=== PATIENT | male | born 1940 | race Caucasian/White ===

== ENCOUNTER 2023-04-15 09:04 | Outpatient (RCR) | payer MEDICARE, OTHER, SELFPAY | END 2023-08-13 23:59 | disposition home or self-care (01) | PROVIDERS: PCP Family Medicine; Visit Provider Family Medicine | DX: G30.9 Alzheimer's disease, unspecified (principal); F02.80 Dementia in other diseases classified elsewhere, unspecified severity, without behavioral disturbance, psychotic disturbance, mood disturbance, and anxiety; Z51.89 Encounter for other specified aftercare | CPT/HCPCS: 97165 ==

== ENCOUNTER 2024-05-17 11:59 | Outpatient (REF) | payer MEDICARE, OTHER, SELFPAY ==
[2024-05-17 14:33] LABS: Vitamin B12* 230 pg/mL (243-894)
== END 2024-05-17 12:00 | disposition home or self-care (01) ==
LOC: NPINS 11:59
PROVIDERS: PCP Family Medicine; Visit Provider Nurse Practitioner Gerontology
DX: E53.8 Deficiency of other specified B group vitamins (principal)
CPT/HCPCS: 82607

== ENCOUNTER 2024-11-16 12:32 | Outpatient (REF) | payer MEDICARE, SELFPAY ==
[2024-11-16 14:47] LABS: Vitamin B12* 214 pg/mL (243-894)
== END 2024-11-16 12:33 | disposition home or self-care (01) ==
LOC: NPINS 12:32
PROVIDERS: PCP Family Medicine; Visit Provider Nurse Practitioner Gerontology
DX: E53.8 Deficiency of other specified B group vitamins (principal)
CPT/HCPCS: 82607

== ENCOUNTER 2025-01-29 22:47 | Outpatient (CLI) | payer MEDICARE, SELFPAY | END 2025-01-29 22:48 | disposition home or self-care (01) | LOC: AMB 01-31 12:59 | PROVIDERS: PCP Family Medicine; Visit Provider Family Medicine | DX: R10.9 Unspecified abdominal pain (principal) | CPT/HCPCS: A0425; A0429 ==

== ENCOUNTER 2025-01-29 23:02 | Emergency (ER) | payer MEDICARE, SELFPAY ==
[2025-01-29 23:04] VITALS: BP 146/77; RESP 18; TEMP 36.2; O2SAT 97; BMI 23.0
--- OUTSIDE RECORDS SUMMARY | 2025-01-29 23:04 | XMS_ITS | Clinical Summary ---
Author Organization [employer] [facility] Address [address] [place] [id number] Care Team Providers Care Paint Mixer Machine Name Role Phone Izabella Selby DO Primary Care Provider [phone] Allergies No known active allergies Medications cyanocobalamin (Vitamin B-12) 1,000 mcg tabletIndication s:Vitamin B12 deficiency Take 1 Tablet (1,000 mcg) by mouth once daily. 90 Tablet 3 03/04/2023 Active galantamine (RAZADYNE) 4 mg tabletIndication s:Dementia in Alzheimer's disease (HC) TAKE 1 TABLET(4 MG) BY MOUTH TWICE DAILY WITH MEALS 180 Tablet 1 06/27/2023 Active Active Problems Problem Noted Date Diagnosed Date Hypertension 10/01/2023 Dementia in Alzheimer's disease 03/24/2023 Memory changes 02/27/2023 Hx of lymphoma 07/01/2012 Immunizations Immunization Administration Dates Next Due COVID-19 vaccine (Russ-J&J) TONE SHAH Pneumococcal Conj 20-valent (Prevnar 20) 024 Tdap 03/10/2021,03/15/2011 Family History Medical History Relation Name Comments Heart Disease Father Obesity Father Emphysema Mother smoker Anesthesia Problem No Family History Blood Disease No Family History Relation Name Status Comments Father Mother Social History Tobacco Use Types Packs/Day Years Used Date Smoking Tobacco: Former Cigarettes 1 15 1 959 - 1973 Smokeless Tobacco: Never Tobacco Cessation:Counseling Given: Not Answered Alcohol Use Standard Drinks/Week Comments Not Currently 0 (1 standard drink = 0.6 oz pur e alcohol) PHQ-2 Answer Date Recorded PHQ-2 TOTAL SCORE 0 10/01/2023 Social Connections Answer Date Recorded Frequency of Communication with Friends and Fami ly 0 03/24/2023 Financial Resource Strain Answer Date R ecorded Difficulty of Paying Living Expenses 3 03/24/2023 Difficulty of Paying Living Expenses Not on file 03/24/2023 Food Insecurity Answer Date Recorded Worried About Running Out of Food in the Last Ye ar 1 03/24/2023 Transportation Needs Answer Date Record ed Lack of Transportation (Medical) 1 03/24/2023 Housing Stability Answer Date Recorded Unable to Pay for Housing in the Last Year 1 03/24/2023 Sex and Gender Information Value Date Recorded Sex Assigned at Not on file 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 Gender Identity Not on file Sexual Orientation Not on file Obstetrics History Last Filed Vital Signs Vital Sign Reading Time Taken Comments Blood Pressure 148/85 10/01/2023 4:39 PM CDT Pulse 48 10/01/2023 4:39 PM CDT Temperature 36.7 C (98 F) 02/16/2019 10:55 AM CDT Respiratory Rate 18 04/05/2019 2:11 PM CDT Oxygen Saturation 99% 06/24/2023 1:32 PM 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 Inhaled Oxygen Concentration - - Weight 75.8 kg (167 lb) 10/01/2023 3:58 PM CDT Height 179.1 cm (5' 10.5) 10/01/2023 3:58 PM CD T with shoes Body Mass Index 23.62 10/01/2023 3:58 PM CDT Plan of Treatment Health Maintenance Due Date Last Done Comments Zoster (shingles) series for age 50+ (1 of 2) 1991 RSV vaccine for adults or (1 - 1-dose 75+ series) 2016 COVID-19 vaccine series (2 - season) 2024 09/01/2020 BMI (ht and wt on same day) for age 18+ 09/30/2024 10/01/2023, 02/27/2023, 02/23/2019, Additional history exists Depression screening for age 12+ 09/30/2024 10/01/2023, 03/27/2023, 03/27/2023, Additional history exists Medicare Wellness for age 65+ 10/01/2024 10/01/2023, 09/07/2018 Influenza Vaccine (#1) 2025 Tetanus booster 03/10/2031 03/10/2021, 03/15/2011 Pneumococcal series for age 50+ Completed 10/01/2023 Hepatitis B series for 19+ Aged Out N o longer eligible based on patient's age to complete this topic Insurance [facility] [place], [place] [id number] MEDICARE PB ONLY Advance Directives Documents on File Type Date Recorded 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
--- NOTE | 2025-01-29 23:11 | ED_ITS ---
HPI - General Adult General Time Seen by Provider: 23:11 Date Seen: 01/29/25 Chief complaint: Constipation Stated complaint: constipation Time Seen by Provider: 01/29/25 23:11 Source: patient, EMS and RN notes reviewed Mode of arrival: EMS Limitations: no limitations History of Present Illness HPI narrative: Evaristo is a very pleasant 84-year-old gentleman with history of dementia who comes from the dementia unit at, who complains of inability to have a bowel movement. Patient denies any abdominal pain chest pain shortness of breath fever chills. He notes he has not had a bowel movement in 2 days and he is very regular. He notes a past history of alcohol use and states that when he was using alcohol he had very loose stools all the time. After he quit using he would sit down every morning and have a bowel movement. He notes no problems with constipation and again denies any abdominal pain. He does agree that perhaps is abdomen is a little bit distended. He is not sure if he has been passing gas. No fever chills or vomiting at this time. Denies dysuria or hematuria. Nursing staff did give him a dose of milk of magnesia but he elected to come to the emergency room via EMS because he was worried that the stool would back up. While patient does have a history of dementia, he seems to be a good historian on this particular issue. Related Data Allergies Allergy/AdvReac Type Severity Reaction Status Date / Time No Known Drug Allergies Allergy Verified 01/29/25 23:09 Review of Systems Status of ROS: Reports: 6 or more systems reviewed and unremarkable except as noted in History and below Const: Denies: fever or chills ENMT: Denies: throat pain, neck pain or nasal congestion Cardio: Denies: chest pain or shortness of breath with exertion Resp: Denies: shortness of breath or cough GI: Denies: abdominal pain, nausea, vomiting or diarrhea : Denies: painful urination or urinary frequency Musculo: Denies: neck pain Exam Narrative: Exam Narrative: Alert and oriented. No acute distress. Heart with regular rate and rhythm and lungs are clear. Abdomen is soft and is nontender. Bowel sounds are heard and are normal. Const: Vital Signs, click to edit/add: Vital Signs - 24 hr 01/29/25 23:04 Temperature 97.2 F L Respiratory Rate 18 Blood Pressure [Ri ght Upper Arm] 146/77 H Pulse Oximetry 97 Oxygen Delivery Me thod Room Air Documenting provider has reviewed patient's vital signs: yes Course Course ED Course: I have ordered a flat plate and upright of the abdomen to assess stool status. Will also obtain urinalysis. Reevaluation(s) Reevaluation #1: Flat plate and upright do show increased stool burden. Have offered patient multiple treatments including enema, rectal suppository, MiraLax only and discharged home. Patient states that he is fine that we do whatever we want to him as we are the experts. Thus I have ordered an Enemeez enema. Reevaluation #2: No evidence of UTI. Reevaluation #3: Patient noted to have stool in the bathroom-he had flushed it but we do note stool on the back of the toilet seat. He states he is feeling better and is ready to go home. Urinalysis without evidence of UTI. Vital Signs Vital signs: Initial Vital Signs Temperature 97.2 F L 01/29/25 23:04 Temperature Source Temporal Artery Scan 01/29/25 23:04 Respiratory Rate 18 01/29/25 23:04 Blood Pressure 146/77 H 01/29/25 23:04 Blood Pressure Mean 100 01/29/25 23:04 Blood Pressure Position Sitting 01/29/25 23:04 Pulse Oximetry 97 01/29/25 23:04 Oxygen Delivery Method Room Air 01/29/25 23:04 Vital Signs Temperature 97.2 F L 01/29/25 23:04 Respiratory Rate 18 01/29/25 23:04 Blood Pressure 146/77 H 01/29/25 23:04 Pulse Oximetry 97 01/29/25 23:04 Oxygen Delivery Method Room Air 01/29/25 23:04 Temperature 97.2 F L 01/29/25 23:04 Respiratory Rate 18 01/29/25 23:04 Blood Pressure 146/77 H 01/29/25 23:04 Pulse Oximetry 97 01/29/25 23:04 Oxygen Delivery Method Room Air 01/29/25 23:04 Medications Administered Medications: Discontinued Medications Generic Name Dose Route Start Last Admin Trade Name Freq PRN Reason Stop Dose Admin Docusate Sodium/Benzocaine 5 ml 01/29/25 23:36 01/29/25 23:55 Docusate Sodium/Benzocaine 5 Ml Enema DC 01/29/25 23:37 5 ml ONCE ONE Administration Medical Decision Making MDM Narrative Medical decision making narrative: 1. Constipation-increased stool burden on x-ray. What other were some distention of the small bowel loops patient has no abdominal pain vomiting to indicate a bowel obstruction. Thus we did attempt Enemeez enema. Patient did have stool. Re-examination of the abdomen continues to be soft. Perhaps even a little softer than before. Patient agrees that he is ready to go home. 2. Disposition-home at this time. Increase fluids. Return as needed. MiraLax daily may be used for ongoing problems with stooling. Lab Data Lab results reviewed: Yes I reviewed the patient's lab results Labs: Lab Results 01/29/25 Range/Units 23:50 Urine Color Yellow (Yellow) Urine Appearance Clear (Clear) Urine pH 7.0 (5.0-8.5) Ur Specific [place] 1.020 (1.000-1.030) Urine Protein 1+ A (Negative) Urine Glucose (UA) Negative (Negative) Urine Ketones Trace A (Negative) Urine Blood Negative (Negative) Urine Nitrite Negative (Negative) Urine Bilirubin Negative (Negative) Urine Urobilinogen 4.0 A (0.2-1.0) Ur Leukocyte Esterase Negative (Negative) Urine RBC 0-2 (0-2) Urine WBC 0-2 (0-5) Ur Squamous Epith Cells Few (None-Few) Urine Bacteria Few A (None) Imaging Data Abdominal x-ray: Attestation: I have reviewed the pertinent imaging results. My impression: Increased stool burden. Few air-fluid levels. Radiologist's impression: Findings/Impression: Mild prominence of multiple small bowel loops without convincing radiographic evidence of obstruction. Prominent colonic stool burden. No radiographic evidence of free intraperitoneal air. Clear lungs. No acute osseous abnormality. Discharge Plan Discharge Clinical Impression: Constipation Patient Disposition: Home, Self-Care Condition: Improved Additional Instructions: Increase fluids over the next few days. If you are having a difficult time with stooling suggest starting MiraLax 1 dose daily. Return to the emergency room for abdominal pain vomiting fever and as needed. Follow Up/Referrals: Alok Sparks MD [Primary Care Provider, Family Practice] Stand Alone Forms: [employer] Info Instructions
--- NOTE | 2025-01-29 23:15 | CRLHL7_ITS ---
For Patients: As a result of the Century Cures Act, medical imaging exams and procedure reports are released immediately into your electronic medical record. You may view this report before your referring provider. If you have questions, please contact your health care provider. Indication: Constipation. Technique: Abdomen 2 view. Comparison: None. Findings/Impression: Mild prominence of multiple small bowel loops without convincing radiographic evidence of obstruction. Prominent colonic stool burden. No radiographic evidence of free intraperitoneal air. Clear lungs. No acute osseous abnormality. Dictated by Haroon Sevilla MD @ 01/29/2025 11:37:25 PM (Electronically Signed)
[2025-01-29] MEDS: DOCUSATE SODIUM/BENZOCAINE 5 ML ENEMA PR (23:55)
[2025-01-30] LABS: Appearance Urine Clear (Clear)
[2025-01-30 00:48] VITALS: BP 138/64; PULSE 68; RESP 16; O2SAT 97
--- NOTE | 2025-01-30 00:51 | ED.NURSE ---
EMS called for transport to facility.
--- NOTE | 2025-01-30 01:16 | ED.NURSE ---
EMS arrived to transport pt. Report given, pt taken to [id number]
== END 2025-01-30 01:18 | disposition home or self-care (01) ==
PROVIDERS: Emergency Provider Family Medicine; PCP Family Medicine
DX: K59.00 Constipation, unspecified (principal)
CPT/HCPCS: 74019; 81001; 87086; 99283; 99284; A9270

== ENCOUNTER 2025-01-30 01:14 | Outpatient (CLI) | payer MEDICARE, SELFPAY | END 2025-01-30 01:15 | disposition home or self-care (01) | LOC: AMB 02-07 13:03 | PROVIDERS: PCP Family Medicine; Visit Provider Family Medicine | DX: K59.00 Constipation, unspecified (principal); F03.90 Unspecified dementia, unspecified severity, without behavioral disturbance, psychotic disturbance, mood disturbance, and anxiety | CPT/HCPCS: A0425; A0428 ==